=== PATIENT | male | born 1935 | race Caucasian/White ===

== ENCOUNTER 2019-07-28 15:40 | Emergency (ER) | payer MEDICARE, OTHER ==
[2019-07-28 16:04] VITALS: BP 130/60; PULSE 65
[2019-07-28] MEDS ORDERED: Baclofen 10 MG Tab PO ONE (16:08)
--- NOTE | 2019-07-28 16:13 | EDM.PDOC ---
ED HPI GENERAL MEDICAL PROBLEM - General Chief Complaint: General Stated Complaint: GROIN PAIN Time Seen by Provider: 07/28/19 15:45 Source of Information: Reports: Patient History Limitations: Reports: No Limitations - History of Present Illness INITIAL COMMENTS - FREE TEXT/NARRATIVE: states he developed sudden onset of pain inthe right high about last nigh last about and hour , no radiaiton , then this afternoon felt pain in son same area renée radiated tot he r knee Onset: Today Onset Date: 07/28/19 Duration: Intermittent Location: Reports: Lower Extremity, Right Quality: Reports: Ache, Dull Severity: Moderate Improves with: Reports: Cold Therapy Worsens with: Reports: Movement Associated Symptoms: Reports: No Other Symptoms right mid/inner thigh Pain Score (Numeric/FACES): 4 - Related Data Allergies Allergy/AdvReac Type Severity Reaction Status Date / Time amoxicillin Allergy Other Verified 07/28/19 15:57 metronidazole [From Flagyl] Allergy Nausea and Verified 07/28/19 15:57 Vomiting tramadol Allergy Other Verified 07/28/19 15:57 Home Meds: Home Meds Aspirin/Acetaminophen/Caffeine [Migraine Relief Caplet] 1 tab PO ASDIRECTED PRN 01/24/15 [History] Esomeprazole [NexIUM] 40 mg PO DAILY 01/24/15 [History] Fluticasone/Salmeterol [Advair 250-50] 1 puff INH BID 01/24/15 [History] Terazosin HCl [Terazosin] 10 mg PO DAILY 01/24/15 [History] Baclofen 10 mg PO BID #30 tablet 07/28/19 [Rx] Magnesium Oxide 400 mg PO DAILY #30 tab 07/28/19 [Rx] Past Medical History HEENT History: Reports: Cataract, Glaucoma, Hard of Hearing, Impaired Vision Respiratory History: Reports: Asthma, COPD, Pneumonia, Recurrent, Other (See Below) Other Respiratory History: EMPHYSEMA, CHRONIC LARYNGITIS Gastrointestinal History: Reports: Colon Polyp, Diverticulosis, GERD Genitourinary History: Reports: Prostate Disorder, Other (See Below) Other Genitourinary History: PROSTATE HYPERTROPHY - Past Surgical History HEENT Surgical History: Reports: Cataract Surgery ED ROS GENERAL - Review of Systems Review Of Systems: Comprehensive ROS is negative, except as noted in HPI. ED EXAM, GENERAL - Physical Exam Exam: See Below Exam Limited By: No Limitations General Appearance: Alert, WD/WN, No Apparent Distress Eye Exam: Bilateral Eye: EOMI Ears: Normal External Exam Nose: Normal Inspection Throat/Mouth: Normal Inspection Head: Atraumatic, Normocephalic Neck: Supple, Non-Tender Cardiovascular: Normal Peripheral Pulses, Regular Rate, Rhythm Peripheral Pulses: 2+: Dorsalis Pedis (L), Dorsalis Pedis (R) GI/Abdominal: Soft, Non-Tender Rectal (Males) Exam: Deferred Back Exam: Full Range of Motion Extremities: Leg Pain (in the right medial thigh : tenderness to palpation noted ) Neurological: Alert, Oriented, CN II-XII Intact Skin Exam: Warm Course - Vital Signs Last Recorded V/S: Last Vital Signs Temp 36.1 C 07/28/19 15:40 Pulse 65 07/28/19 15:40 Resp 18 07/28/19 15:40 BP 130/60 07/28/19 15:40 Pulse Ox 98 07/28/19 15:40 - Orders/Labs/Meds Orders: Active Orders 24 hr Category Date Time Status VL Duplex Lwr Ext Veins Ltd Rt [US] Stat Exams 07/28/19 16:08 Taken Labs: Laboratory Tests 07/28/19 07/28/19 07/28/19 Range/Units 16:41 16:41 16:52 WBC 7.5 (4.5-12.0) X10-3/uL RBC 4.60 (4.30-5.75) x10(6)uL Hgb 14.6 (13.5-17.8) g/dL Hct 43.7 (30.0-51.3) % MCV 94.9 (80-96) fL MCH 31.7 (27.7-33.6) pg MCHC 33.4 (32.2-35.4) g/dL RDW 13.6 (11.5-15.5) % Plt Count 215 (125-369) X10(3)uL MPV 7.4 (7.4-10.4) fL Neut % (Auto) 62.6 (46-82) % Lymph % (Auto) 26.5 (13-37) % [place] % (Auto) 6.8 (4-12) % Eos % (Auto) 3 (1.0-5.0) % Baso % (Auto) 1 (0-2) % Neut # (Auto) 4.6 (1.6-8.3) # Lymph # (Auto) 2.0 (0.6-5.0) # [place] # (Auto) 0.5 (0.0-1.3) # Eos # (Auto) 0.3 (0.0-0.8) # Baso # (Auto) 0.1 (0.0-0.2) # Sodium 142 (135-145) mmol/L Potassium 4.0 (3.5-5.3) mmol/L Chloride 105 (100-110) mmol/L Carbon Dioxide 24 (21-32) mmol/L BUN 26 H (7-18) mg/dL Creatinine 1.4 H (0.70-1.30) mg/dL Est Cr Clr Drug Dosing TNP Estimated GFR (MDRD) 49 L (>60) BUN/Creatinine Ratio 18.6 (9-20) Glucose 105 (80-116) mg/dL Calcium 8.8 (8.6-10.2) mg/dL Magnesium 1.9 (1.8-2.5) mg/dL Urine Color Yellow (YELLOW) Urine Appearance Clear (CLEAR) Urine pH 5.0 (5.0-6.5) Ur Specific [place] 1.020 (1.010-1.025) Urine Protein Negative (NEGATIVE) mg/dL Urine Glucose (UA) Normal (NORMAL) mg/dL Urine Ketones Negative (NEGATIVE) mg/dL Urine Occult Blood Negative (NEGATIVE) Urine Nitrite Negative (NEGATIVE) Urine Bilirubin Negative (NEGATIVE) Urine Urobilinogen Normal (NEGATIVE) mg/dL Ur Leukocyte Esterase Negative (NEGATIVE) Urine RBC Not seen (0-5) Urine WBC 0-5 (0-5) Ur Squamous Epith Cells Few H (NS,R,O) Urine Bacteria Few H (NS) Meds: Medications Discontinued Medications Generic Name Dose Route Start Last Admin Trade Name Freq PRN Reason Stop Dose Admin Baclofen 10 mg 07/28/19 16:08 07/28/19 16:40 Lioresal PO 07/28/19 16:09 10 mg ONETIME ONE Administration Magnesium Oxide 400 mg 07/28/19 17:09 07/28/19 17:12 Magnesium Oxide PO 07/28/19 17:10 400 mg ONETIME ONE Administration - Re-Assessments/Exams Free Text/Narrative Re-Assessment/Exam: 07/28/19 17:18 pt remained stable had Venous doppler of right keg: negative Departure - Departure Time of Disposition: 17:20 Disposition: Home, Self-Care 01 Clinical Impression: Right thigh pain, Muscle spasm of right lower extremity - Discharge Information *PRESCRIPTION DRUG MONITORING PROGRAM REVIEWED*: Not Applicable *COPY OF PRESCRIPTION DRUG MONITORING REPORT IN PATIENT PATRIZIA: Not Applicable Prescriptions: Baclofen 10 mg PO BID #30 tablet Magnesium Oxide 400 mg PO DAILY #30 tab Instructions: Muscle Cramps and Spasms, [id number], How to Use Cold Therapy, [id number], Heat Therapy, [id number] Referrals: Gunner Bach MD [Primary Care Provider] - Forms: ED Department Discharge Care Plan Goals: 1) COLD COMPRESS TO AFFECTED AREA 3 TIMES A DAY FOR 10MINS NEEDED 2) USE MUSCLE RELAXANT NEEDED , OR AT BEDTIME 3) IF SYMPTOMS PERSIST , SEE YOU PCP. Sepsis Event Note - Evaluation Sepsis Screening Result: No Definite Risk - Focused Exam Vital Signs: Vital Signs Temp Pulse Resp BP Pulse Ox 07/28/19 15:40 36.1 C 65 18 130/60 98 Date Exam was Performed: 07/28/19 Time Exam was Performed: 17:14 - My Orders Last 24 Hours: My Active Orders 07/28/19 16:08 VL Duplex Lwr Ext Veins Ltd Rt [US] Stat - Assessment/Plan Last 24 Hours: My Active Orders 07/28/19 16:08 VL Duplex Lwr Ext Veins Ltd Rt [US] Stat
[2019-07-28] MEDS ORDERED: Magnesium Oxide 400 MG Tab PO ONE (17:09)
--- NOTE | 2019-07-31 10:10 | US ---
INDICATION: Right thigh pain, question DVT - painful right groin. DUPLEX ULTRASOUND, RIGHT LOWER EXTREMITY VEINS: Utilizing 2-D real time, duplex Doppler spectral analysis and color flow imaging, examination of the right lower extremity veins, including the common femoral vein, proximal greater saphenous vein, proximal deep femoral vein, proximal femoral vein, mid femoral vein, distal femoral vein, popliteal vein, posterior tibial vein, anterior tibial vein, and peroneal vein, revealed no evidence of deep venous thrombosis or obstruction. Compression views showed no abnormal lack of compression to suggest thrombosis. No evidence of incompetence of the valves was identified. IMPRESSION: Duplex ultrasound, right lower extremity veins, shows no evidence of deep venous thrombosis or incompetence. MTDD
== END 2019-07-28 17:20 | disposition home or self-care (01) ==
LOC: FB.ED 15:40
DX: M62.838 Other muscle spasm (principal); Z88.1 Allergy status to other antibiotic agents; Z88.5 Allergy status to narcotic agent; J44.9 Chronic obstructive pulmonary disease, unspecified; K21.9 Gastro-esophageal reflux disease without esophagitis; Z79.899 Other long term (current) drug therapy
CPT/HCPCS: 36415; 80048; 81001; 83735; 85025; 93971; 99284; A9270

== ENCOUNTER 2020-10-14 12:59 | Emergency (ER) | payer MEDICARE, OTHER ==
[2020-10-14 13:44] VITALS: BP 140/87; PULSE 78
--- NOTE | 2020-10-14 14:22 | EDM.PDOC ---
ED HPI GENERAL MEDICAL PROBLEM - General Chief Complaint: Chest Pain Stated Complaint: ARM PAIN Time Seen by Provider: 10/14/20 13:05 Source of Information: Reports: Patient History Limitations: Reports: No Limitations - History of Present Illness INITIAL COMMENTS - FREE TEXT/NARRATIVE: Patient presented to the ED because of chest pain which started at about 12 nn and lasted for an hour. The pain is sharp,10, radiating to the left shoulder. There is no associated nausea,vomiting, diaphoresis or dyspnea. - Related Data Allergies Allergy/AdvReac Type Severity Reaction Status Date / Time amoxicillin Allergy Other Verified 10/14/20 13:25 metronidazole [From Flagyl] Allergy Nausea and Verified 10/14/20 13:25 Vomiting tramadol Allergy Other Verified 10/14/20 13:25 Home Meds: Home Meds Aspirin/Acetaminophen/Caffeine [Migraine Relief Caplet] 1 tab PO ASDIRECTED PRN 01/24/15 [History] Esomeprazole [NexIUM] 40 mg PO DAILY 01/24/15 [History] Fluticasone/Salmeterol [Advair 250-50] 1 puff INH BID 01/24/15 [History] Terazosin HCl [Terazosin] 10 mg PO DAILY 01/24/15 [History] Magnesium Oxide 400 mg PO DAILY #30 tab 07/28/19 [Rx] Past Medical History HEENT History: Reports: Cataract, Glaucoma, Hard of Hearing, Impaired Vision Respiratory History: Reports: Asthma, COPD, Pneumonia, Recurrent, Other (See Below) Other Respiratory History: EMPHYSEMA, CHRONIC LARYNGITIS Gastrointestinal History: Reports: Colon Polyp, Diverticulosis, GERD Genitourinary History: Reports: Prostate Disorder, Other (See Below) Other Genitourinary History: PROSTATE HYPERTROPHY - Past Surgical History HEENT Surgical History: Reports: Cataract Surgery Social & Family History - Tobacco Use Tobacco Use Status *Q: Never Tobacco User - Caffeine Use Caffeine Use: Reports: None - Recreational Drug Use Recreational Drug Use: No ED ROS GENERAL - Review of Systems Review Of Systems: See Below Constitutional: Reports: No Symptoms HEENT: Reports: No Symptoms Respiratory: Reports: No Symptoms Cardiovascular: Reports: Chest Pain Endocrine: Reports: No Symptoms GI/Abdominal: Reports: No Symptoms : Reports: No Symptoms Musculoskeletal: Reports: No Symptoms Skin: Reports: No Symptoms Neurological: Reports: No Symptoms Psychiatric: Reports: No Symptoms Hematologic/Lymphatic: Reports: No Symptoms Immunologic: Reports: No Symptoms ED EXAM, GENERAL - Physical Exam Exam: See Below Exam Limited By: No Limitations General Appearance: Alert, No Apparent Distress Eye Exam: Bilateral Eye: PERRL Ears: Normal External Exam, Normal Canal, Hearing Grossly Normal Nose: Normal Inspection, Normal Mucosa, No Blood Throat/Mouth: Normal Inspection, Normal Lips, Normal Teeth, Normal Gums, Normal Oropharynx, Normal Voice, No Airway Compromise Head: Atraumatic, Normocephalic Neck: Normal Inspection, Supple, Non-Tender, Full Range of Motion Respiratory/Chest: No Respiratory Distress, Lungs Clear, Normal Breath Sounds, No Accessory Muscle Use, Other (chest wall tenderness) Cardiovascular: Normal Peripheral Pulses, Regular Rate, Rhythm, No Edema, No Gallop, No JVD, No Murmur, No Rub GI/Abdominal: Normal Bowel Sounds, Soft, Non-Tender, No Organomegaly, No Distention, No Abnormal Bruit, No Mass Back Exam: Normal Inspection, Full Range of Motion Extremities: Normal Inspection, Normal Range of Motion, Non-Tender, No Pedal Edema, Normal Capillary Refill #1 Interpretation EKG Date: 10/14/20 Time: 12:57 Rhythm: NSR Rate (Beats/Min): 72 [place]: Normal P-Wave: Present QRS: Normal ST-T: Normal QT: Normal W[place]/PQ Interval: 72 Comparison: NA - No Prior EKG EKG Interpretation Comments: NSR Course - Vital Signs Text/Narrative:: Lab/EKG/CXR result was reviewed and discussed with patient Last Recorded V/S: Last Vital Signs Temp 36.2 C 10/14/20 12:59 Pulse 78 10/14/20 12:59 Resp 18 10/14/20 12:59 BP 140/87 10/14/20 12:59 Pulse Ox 97 10/14/20 12:59 - Orders/Labs/Meds Orders: Active Orders 24 hr Category Date Time Status EKG Documentation Completion [RC] ASDIRECTED Care 10/14/20 13:24 Active Chest 1V Frontal [CR] Stat Exams 10/14/20 13:23 Taken EKG 12 Lead [EK] Routine Ther 10/14/20 13:23 Ordered Labs: Laboratory Tests 10/14/20 10/14/20 10/14/20 Range/Units 13:15 13:15 13:15 WBC 6.7 (3.2-10.1) x10-3/uL RBC 4.34 (3.90-5.90) x10(6)uL Hgb 13.9 (12.9-17.7) g/dL Hct 40.7 (38.3-50.1) % MCV 93.7 (80.8-98.7) fL MCH 32.1 (27.0-33.3) pg MCHC 34.2 (28.7-35.3) g/dL RDW 14.0 (12.4-15.0) % Plt Count 186 (117-477) x10(3)uL MPV 7.5 (6.7-11.0) fL Neut % (Auto) 59.1 (40.3-71.8) % Lymph % (Auto) 27.6 (15.8-45.3) % [place] % (Auto) 9.3 (5.5-15.2) % Eos % (Auto) 3.3 (0.1-6.8) % Baso % (Auto) 0.7 (0.3-3.8) % Neut # (Auto) 4.0 (1.7-6.9) x10-3/uL Lymph # (Auto) 1.8 (0.5-4.5) x10-3/uL [place] # (Auto) 0.6 (0.0-1.2) x10-3/uL Eos # (Auto) 0.2 (0.0-0.6) x10-3/uL Baso # (Auto) 0.0 (0.0-0.3) x10-3/uL Sodium 145 (135-145) mmol/L Potassium 4.2 (3.5-5.3) mmol/L Chloride 108 (100-110) mmol/L Carbon Dioxide 24 (21-32) mmol/L BUN 16 D (7-18) mg/dL Creatinine 1.2 (0.70-1.30) mg/dL Est Cr Clr Drug Dosing TNP Estimated GFR (MDRD) 58 L (>60) BUN/Creatinine Ratio 13.3 (9-20) Glucose 96 (80-116) mg/dL Calcium 8.8 (8.6-10.2) mg/dL Total Bilirubin 0.5 (0.1-1.3) mg/dL AST 20 (5-25) IU/L ALT 25 (12-36) U/L Alkaline Phosphatase 73 (56-112) IU/L Troponin I < 4.0 L (4.0-60.3) pg/mL NT-Pro-B Natriuret Pep 190 (<=450) pg/mL Total Protein 7.5 (6.0-8.0) g/dL Albumin 3.9 (3.2-4.6) g/dL Globulin 3.6 g/dL Albumin/Globulin Ratio 1.1 Departure - Departure Time of Disposition: 14:30 Disposition: Home, Self-Care 01 Clinical Impression: Chest wall pain Instructions: Nonspecific Chest Pain, Adult, [id number], Nonspecific Chest Pain, Adult Referrals: Gunner Bach MD [Primary Care Provider] - Forms: ED Department Discharge Additional Instructions: Please read discharge instructions on atypical chest pain Take naproxen 500 mg twice daily for 1 week Follow up as needed Sepsis Event Note (ED) - Evaluation Sepsis Screening Result: No Definite Risk - Focused Exam Vital Signs: Vital Signs Temp Pulse Resp BP Pulse Ox 10/14/20 12:59 36.2 C 78 18 140/87 97 - My Orders Last 24 Hours: My Active Orders 10/14/20 13:23 Chest 1V Frontal [CR] Stat EKG 12 Lead [EK] Routine 10/14/20 13:24 EKG Documentation Completion [RC] ASDIRECTED - Assessment/Plan Last 24 Hours: My Active Orders 10/14/20 13:23 Chest 1V Frontal [CR] Stat EKG 12 Lead [EK] Routine 10/14/20 13:24 EKG Documentation Completion [RC] ASDIRECTED
--- NOTE | 2020-10-14 15:08 | CR ---
CHEST ONE VIEW INDICATION: Chest pain. History of COPD. AP portable upright views of the chest x2 were obtained 10/14/20 and compared with 06/13/10 and 07/04/09. A definite active infiltrate or effusion was not identified. The heart did not appear enlarged. The aorta is tortuous with minimal calcification in the arch. Overlying EKG leads are noted. IMPRESSION: No acute process. Fairly stable appearance of the chest allowing for relatively poor inspiration. MTDD
[2020-10-14] MEDS ORDERED: Sodium Chloride 0.9% 10 ML Syringe FLUSH PRN (17:37)
== END 2020-10-14 14:33 | disposition home or self-care (01) ==
LOC: FB.ED 12:59
DX: R07.89 Other chest pain (principal); J43.9 Emphysema, unspecified; K21.9 Gastro-esophageal reflux disease without esophagitis; Z88.0 Allergy status to penicillin; Z88.1 Allergy status to other antibiotic agents; Z88.5 Allergy status to narcotic agent; Z79.82 Long term (current) use of aspirin; Z79.899 Other long term (current) drug therapy
CPT/HCPCS: 36415; 71045; 80053; 83880; 84484; 85025; 93005; 99285-25

== ENCOUNTER 2024-02-10 10:58 | Emergency (ER) | payer MEDICARE, OTHER ==
[2024-02-10 11:29] LABS: BASOPHILS PERCENT AUTO 0.7 % (0.3-3.8); EOSINOPHILS ABSOLUTE AUTO 0.1 x10-3/uL (0.0-0.6); EOSINOPHILS PERCENT AUTO 2.1 % (0.1-6.8); HEMATOCRIT 42.8 % (38.3-50.1); HEMOGLOBIN 14.5 g/dL (12.9-17.7); LYMPHOCYTES PERCENT AUTO 15.6 % (15.8-45.3); MEAN CORPUSCULAR HGB CONC 33.8 g/dL (28.7-35.3); MEAN CORPUSCULAR VOLUME 94.7 fL (80.8-98.7); MEAN PLATELET VOLUME 7.6 fL (6.7-11.0); MONOCYTES ABSOLUTE AUTO 0.4 x10-3/uL (0.0-1.2); MONOCYTES PERCENT AUTO 5.8 % (5.5-15.2); NEUTROPHILS PERCENT AUTO 75.8 % (40.3-71.8); PLATELET COUNT,PLT 163 x10(3)uL (117-477); RED BLOOD CELL COUNT 4.52 x10(6)uL (3.90-5.90); RED CELL DISTRIBUTION WIDTH 13.9 % (12.4-15.0); WHITE BLOOD CELL COUNT,WBC 6.5 x10-3/uL (3.2-10.1)
[2024-02-10 11:36] LABS: BLOOD UREA NITROGEN,BUN 20 mg/dL (7-18); CALCIUM 9.4 mg/dL (8.6-10.2); CARBON DIOXIDE,CO2 26 mmol/L (21-32); CHLORIDE,CL 109 mmol/L (100-110); ESTIMATED GFR 73 mL/min (>60); GLUCOSE RANDOM 100 mg/dL (80-116); SODIUM,NA 144 mmol/L (135-145)
[2024-02-10 11:43] LABS: A/G RATIO 1.3; ALANINE AMINOTRANSFERASE,ALT 21 U/L (12-36); ALBUMIN 4.3 g/dL (3.2-4.6); ALKALINE PHOSPHATASE 116 IU/L (56-112); ASPARTATE AMNIOTRANSFERASE,AST 15 IU/L (5-25); BILIRUBIN TOTAL 0.6 mg/dL (0.1-1.3); PROTEIN TOTAL,TP 7.5 g/dL (6.0-8.0)
[2024-02-10] MEDS: Acetaminophen 500 MG Tab PO ONE (12:04)
[2024-02-10] MEDS: Ketorolac 30 MG/ML SDV IVPUSH ONE (12:05)
[2024-02-10] MEDS: Sodium Chloride 0.9% 10 ML Syringe FLUSH PRN (12:08)
[2024-02-10] MEDS: Iopamidol 755 Mg/ML 100 ML Bottle IV SCH (12:48)
[2024-02-10 13:49] VITALS: BP 132/89; PULSE 88
[2024-02-10] MEDS: traMADol 50 MG Tab PO ONE (13:54)
== END 2024-02-10 13:40 | disposition home or self-care (01) ==
LOC: FB.ED 10:58
DX: M54.9 Dorsalgia, unspecified (principal); J44.89 Other specified chronic obstructive pulmonary disease; K21.9 Gastro-esophageal reflux disease without esophagitis; Z88.0 Allergy status to penicillin; Z88.5 Allergy status to narcotic agent; Z88.1 Allergy status to other antibiotic agents; Z79.82 Long term (current) use of aspirin; Z79.899 Other long term (current) drug therapy
CPT/HCPCS: 36415; 71260; 74160; 80053; 84484; 85025; 93005; 93010; 96374; 99284; 99284-25; A9270-GY; J1885; Q9967

== ENCOUNTER 2024-04-14 09:05 | Emergency (ER) | payer MEDICARE, OTHER ==
[2024-04-14 09:44] LABS: BASOPHILS PERCENT AUTO 0.7 % (0.3-3.8); EOSINOPHILS ABSOLUTE AUTO 0.1 x10-3/uL (0.0-0.6); EOSINOPHILS PERCENT AUTO 2.4 % (0.1-6.8); HEMATOCRIT 37.1 % (38.3-50.1); HEMOGLOBIN 12.9 g/dL (12.9-17.7); LYMPHOCYTES ABSOLUTE AUTO 0.8 x10-3/uL (0.5-4.5); LYMPHOCYTES PERCENT AUTO 20.7 % (15.8-45.3); MEAN CORPUSCULAR HEMOGLOBIN 32.4 pg (27.0-33.3); MEAN CORPUSCULAR HGB CONC 34.8 g/dL (28.7-35.3); MEAN CORPUSCULAR VOLUME 93.2 fL (80.8-98.7); MEAN PLATELET VOLUME 7.5 fL (6.7-11.0); MONOCYTES ABSOLUTE AUTO 0.5 x10-3/uL (0.0-1.2); MONOCYTES PERCENT AUTO 13.2 % (5.5-15.2); NEUTROPHILS ABSOLUTE AUTO 2.4 x10-3/uL (1.7-6.9); PLATELET COUNT,PLT 145 x10(3)uL (117-477); RED BLOOD CELL COUNT 3.98 x10(6)uL (3.90-5.90); RED CELL DISTRIBUTION WIDTH 14.3 % (12.4-15.0); WHITE BLOOD CELL COUNT,WBC 3.7 x10-3/uL (3.2-10.1)
[2024-04-14 09:45] LABS: BLOOD UREA NITROGEN,BUN 16 mg/dL (7-18); CALCIUM 8.7 mg/dL (8.6-10.2); CARBON DIOXIDE,CO2 26 mmol/L (21-32); CHLORIDE,CL 105 mmol/L (100-110); ESTIMATED GFR 73 mL/min (>60); GLUCOSE RANDOM 108 mg/dL (80-116); SODIUM,NA 138 mmol/L (135-145)
[2024-04-14] MEDS: Ketorolac 30 MG/ML SDV IVPUSH ONE (09:45)
[2024-04-14] MEDS: Cyclobenzaprine 10 MG Tab PO ONE (09:45)
[2024-04-14] MEDS: Sodium Chloride 0.9% 1,000 ML IV SCH (09:46)
[2024-04-14 09:51] LABS: ALANINE AMINOTRANSFERASE,ALT 19 U/L (12-36); ALBUMIN 3.7 g/dL (3.2-4.6); ALKALINE PHOSPHATASE 159 IU/L (56-112); ASPARTATE AMNIOTRANSFERASE,AST 20 IU/L (5-25); BILIRUBIN TOTAL 0.4 mg/dL (0.1-1.3); PROTEIN TOTAL,TP 7.5 g/dL (6.0-8.0)
[2024-04-14 10:38] LABS: BILIRUBIN,URINE NEGATIVE (NEGATIVE); GLUCOSE,URINE NORMAL (NORMAL); KETONES,URINE NEGATIVE (NEGATIVE); LEUKOCYTE ESTERASE,URINE NEGATIVE (NEGATIVE); NITRITE,URINE NEGATIVE (NEGATIVE); OCCULT BLOOD,URINE MODERATE (NEGATIVE); PROTEIN,URINE NEGATIVE (NEGATIVE); UROBILINOGEN,URINE NORMAL (NEGATIVE)
[2024-04-14 10:42] LABS: APPEARANCE,URINE CLEAR (CLEAR); COLOR,URINE YELLOW (YELLOW)
[2024-04-14 10:47] LABS: BACTERIA,URINE OCCASIONAL (NS); RBC,URINE 0-5 (0-5); SQUAMOUS EPITHELIAL CELLS,UR OCCASIONAL (NS,R,O)
[2024-04-14 11:46] VITALS: BP 135/72; PULSE 67
== END 2024-04-14 11:20 | disposition home or self-care (01) ==
LOC: FB.ED 09:05
DX: M54.50 Low back pain, unspecified (principal); J44.89 Other specified chronic obstructive pulmonary disease; K21.9 Gastro-esophageal reflux disease without esophagitis; Z88.0 Allergy status to penicillin; Z88.5 Allergy status to narcotic agent; Z88.8 Allergy status to other drugs, medicaments and biological substances; Z79.82 Long term (current) use of aspirin; Z79.899 Other long term (current) drug therapy
CPT/HCPCS: 72131; 74176; 80053; 81001; 85025; 96361; 96374; 99284; A9270; J1885; J7030

== ENCOUNTER 2024-05-23 22:23 | Emergency (ER) | payer MEDICARE, OTHER ==
[2024-05-23] MEDS: Sodium Chloride 0.9% 10 ML Syringe FLUSH PRN (22:34)
[2024-05-23] MEDS: Nitroglycerin 0.4 MG Tab.SL SL PRN (22:55)
[2024-05-23 22:59] LABS: BASOPHILS PERCENT AUTO 0.4 % (0.3-3.8); EOSINOPHILS ABSOLUTE AUTO 0.4 x10-3/uL (0.0-0.6); EOSINOPHILS PERCENT AUTO 5.5 % (0.1-6.8); HEMATOCRIT 36.4 % (38.3-50.1); HEMOGLOBIN 12.6 g/dL (12.9-17.7); LYMPHOCYTES ABSOLUTE AUTO 1.6 x10-3/uL (0.5-4.5); LYMPHOCYTES PERCENT AUTO 23.5 % (15.8-45.3); MEAN CORPUSCULAR HEMOGLOBIN 33.7 pg (27.0-33.3); MEAN CORPUSCULAR HGB CONC 34.6 g/dL (28.7-35.3); MEAN CORPUSCULAR VOLUME 97.2 fL (80.8-98.7); MEAN PLATELET VOLUME 8.2 fL (6.7-11.0); MONOCYTES ABSOLUTE AUTO 0.5 x10-3/uL (0.0-1.2); MONOCYTES PERCENT AUTO 8.1 % (5.5-15.2); NEUTROPHILS ABSOLUTE AUTO 4.2 x10-3/uL (1.7-6.9); NEUTROPHILS PERCENT AUTO 62.6 % (40.3-71.8); PLATELET COUNT,PLT 143 x10(3)uL (117-477); RED BLOOD CELL COUNT 3.74 x10(6)uL (3.90-5.90); RED CELL DISTRIBUTION WIDTH 13.7 % (12.4-15.0); WHITE BLOOD CELL COUNT,WBC 6.7 x10-3/uL (3.2-10.1)
[2024-05-23] MEDS: Aspirin 81 MG Tab.Chew PO ONE (22:59)
[2024-05-23 23:00] LABS: BLOOD UREA NITROGEN,BUN 19 mg/dL (7-18); BUN/CREATININE RATIO 17.3 (9-20); CALCIUM 8.8 mg/dL (8.6-10.2); CARBON DIOXIDE,CO2 27 mmol/L (21-32); CHLORIDE,CL 105 mmol/L (100-110); CREATININE 1.1 mg/dL (0.70-1.30); EST CRCL DRUG DOSING (CG) 46.64 mL/min; ESTIMATED GFR 65 mL/min (>60); GLUCOSE RANDOM 105 mg/dL (80-116); POTASSIUM,K 3.8 mmol/L (3.5-5.3); SODIUM,NA 141 mmol/L (135-145)
[2024-05-23 23:05] LABS: A/G RATIO 1.1; ALANINE AMINOTRANSFERASE,ALT 17 U/L (12-36); ALBUMIN 3.8 g/dL (3.2-4.6); ALKALINE PHOSPHATASE 214 IU/L (56-112); ASPARTATE AMNIOTRANSFERASE,AST 24 IU/L (5-25); BILIRUBIN TOTAL 0.5 mg/dL (0.1-1.3); PROTEIN TOTAL,TP 7.3 g/dL (6.0-8.0)
[2024-05-23 23:21] LABS: TROPONIN I 72.3 pg/mL (4.0-60.3)
[2024-05-24] MEDS: Iopamidol 755 Mg/ML 100 ML Bottle IV SCH (00:15)
[2024-05-24] MEDS: Morphine 2 MG/ML SYRINGE IVPUSH ONE (00:25)
[2024-05-24 00:39] LABS: INR 1.05 (1.00-1.24); PROTHROMBIN TIME 10.9 sec (9.0-11.1)
[2024-05-24 00:59] LABS: PTT,PARTIAL THROMBOPLSTIN TIME 26.8 SECONDS (24.4-33.2)
[2024-05-24] MEDS: Heparin Sodium 5,000 Units/ML Vial IVPUSH ONE (01:50)
[2024-05-24] MEDS: Heparin Sodium/0.45% NaCl 500 ML IV SCH (01:51)
[2024-05-24] MEDS: Morphine 2 MG/ML SYRINGE IVPUSH PRN (02:43)
[2024-05-24 05:33] VITALS: BP 121/67; PULSE 63
== END 2024-05-24 05:52 ==
LOC: FB.ED 22:23
DX: I24.9 Acute ischemic heart disease, unspecified (principal); I50.9 Heart failure, unspecified; N40.0 Benign prostatic hyperplasia without lower urinary tract symptoms; J44.89 Other specified chronic obstructive pulmonary disease; Z88.0 Allergy status to penicillin; Z88.5 Allergy status to narcotic agent; Z88.8 Allergy status to other drugs, medicaments and biological substances; Z79.899 Other long term (current) drug therapy; Z79.82 Long term (current) use of aspirin; Z86.16 Personal history of COVID-19; Z87.891 Personal history of nicotine dependence
CPT/HCPCS: 36415; 71045; 71275; 80053; 83880; 84484; 85025; 85379; 85610; 85730; 93005; 93010; 96365; 96366; 96375; 96376; 99285; 99285-25; A9270-GY; J1644; J2270; Q9967

== ENCOUNTER 2024-07-06 08:55 | Emergency (ER) | payer MEDICARE, OTHER ==
[2024-07-06] MEDS ORDERED: Sodium Chloride 0.9% 10 ML Syringe FLUSH PRN (09:23)
[2024-07-06 09:50] LABS: BLOOD UREA NITROGEN,BUN 18 mg/dL (7-18); BUN/CREATININE RATIO 13.8 (9-20); CALCIUM 8.9 mg/dL (8.6-10.2); CARBON DIOXIDE,CO2 27 mmol/L (21-32); CHLORIDE,CL 101 mmol/L (100-110); CREATININE 1.3 mg/dL (0.70-1.30); EST CRCL DRUG DOSING (CG) 39.46 mL/min; ESTIMATED GFR 54 mL/min (>60); GLUCOSE RANDOM 114 mg/dL (80-116); POTASSIUM,K 4.1 mmol/L (3.5-5.3); SODIUM,NA 138 mmol/L (135-145)
[2024-07-06 09:55] LABS: BASOPHILS PERCENT AUTO 0.3 % (0.3-3.8); EOSINOPHILS ABSOLUTE AUTO 0.2 x10-3/uL (0.0-0.6); EOSINOPHILS PERCENT AUTO 3.2 % (0.1-6.8); HEMATOCRIT 34.6 % (38.3-50.1); HEMOGLOBIN 11.8 g/dL (12.9-17.7); LYMPHOCYTES PERCENT AUTO 15.7 % (15.8-45.3); MEAN CORPUSCULAR HGB CONC 34.1 g/dL (28.7-35.3); MEAN CORPUSCULAR VOLUME 94.1 fL (80.8-98.7); MEAN PLATELET VOLUME 7.9 fL (6.7-11.0); MONOCYTES ABSOLUTE AUTO 0.6 x10-3/uL (0.0-1.2); MONOCYTES PERCENT AUTO 9.8 % (5.5-15.2); NEUTROPHILS ABSOLUTE AUTO 4.7 x10-3/uL (1.7-6.9); NEUTROPHILS PERCENT AUTO 71.1 % (40.3-71.8); PLATELET COUNT,PLT 150 x10(3)uL (117-477); RED BLOOD CELL COUNT 3.68 x10(6)uL (3.90-5.90); RED CELL DISTRIBUTION WIDTH 15.4 % (12.4-15.0); WHITE BLOOD CELL COUNT,WBC 6.6 x10-3/uL (3.2-10.1)
[2024-07-06 09:56] LABS: A/G RATIO 0.9; ALANINE AMINOTRANSFERASE,ALT 13 U/L (12-36); ALBUMIN 3.5 g/dL (3.2-4.6); ALKALINE PHOSPHATASE 274 IU/L (56-112); ASPARTATE AMNIOTRANSFERASE,AST 26 IU/L (5-25); BILIRUBIN TOTAL 0.8 mg/dL (0.1-1.3); MAGNESIUM 1.9 mg/dL (1.8-2.5); PROTEIN TOTAL,TP 7.3 g/dL (6.0-8.0)
[2024-07-06 09:59] LABS: TROPONIN I 11.3 pg/mL (4.0-60.3)
[2024-07-06 10:00] LABS: C-REACTIVE PROTEIN 6.91 mg/dL (<0.50)
[2024-07-06 10:38] LABS: BILIRUBIN,URINE NEGATIVE (NEGATIVE); GLUCOSE,URINE NORMAL (NORMAL); KETONES,URINE NEGATIVE (NEGATIVE); LEUKOCYTE ESTERASE,URINE NEGATIVE (NEGATIVE); NITRITE,URINE NEGATIVE (NEGATIVE); OCCULT BLOOD,URINE NEGATIVE (NEGATIVE); PROTEIN,URINE NEGATIVE (NEGATIVE); UROBILINOGEN,URINE NORMAL (NEGATIVE)
[2024-07-06 10:44] LABS: APPEARANCE,URINE CLEAR (CLEAR); COLOR,URINE YELLOW (YELLOW)
[2024-07-06 12:51] VITALS: BP 125/55; PULSE 61
== END 2024-07-06 12:32 | disposition home or self-care (01) ==
LOC: FB.ED 08:55
DX: M94.0 Chondrocostal junction syndrome [Tietze] (principal); R07.9 Chest pain, unspecified; I25.10 Atherosclerotic heart disease of native coronary artery without angina pectoris; Z86.16 Personal history of COVID-19; Z90.49 Acquired absence of other specified parts of digestive tract; Z79.899 Other long term (current) drug therapy; Z88.0 Allergy status to penicillin
CPT/HCPCS: 36415; 71045; 80053; 81003; 83735; 84484; 85025; 86140; 93005; 99285

== ENCOUNTER 2024-12-08 10:58 | Emergency (ER) | payer MEDICARE, OTHER ==
[2024-12-08] MEDS ORDERED: Sodium Chloride 0.9% 10 ML Syringe FLUSH PRN (11:10)
[2024-12-08 11:30] LABS: BASOPHILS ABSOLUTE AUTO 0.0 x10-3/uL (0.0-0.3); BASOPHILS PERCENT AUTO 0.6 % (0.3-3.8); EOSINOPHILS ABSOLUTE AUTO 0.3 x10-3/uL (0.0-0.6); EOSINOPHILS PERCENT AUTO 6.6 % (0.1-6.8); LYMPHOCYTES ABSOLUTE AUTO 0.5 x10-3/uL (0.5-4.5); LYMPHOCYTES PERCENT AUTO 10.6 % (15.8-45.3); MEAN PLATELET VOLUME 7.4 fL (6.7-11.0); MONOCYTES ABSOLUTE AUTO 0.4 x10-3/uL (0.0-1.2); MONOCYTES PERCENT AUTO 8.2 % (5.5-15.2); NEUTROPHILS ABSOLUTE AUTO 3.8 x10-3/uL (1.7-6.9); NEUTROPHILS PERCENT AUTO 74.0 % (40.3-71.8); PLATELET COUNT,PLT 143 x10(3)uL (117-477); RED CELL DISTRIBUTION WIDTH 17.4 % (12.4-15.0); WHITE BLOOD CELL COUNT,WBC 5.1 x10-3/uL (3.2-10.1)
[2024-12-08 11:35] LABS: BLOOD UREA NITROGEN,BUN 20 mg/dL (7-18); CARBON DIOXIDE,CO2 25 mmol/L (21-32); CHLORIDE,CL 110 mmol/L (100-110); CREATININE 1.1 mg/dL (0.70-1.30); ESTIMATED GFR 65 mL/min (>60); GLUCOSE RANDOM 108 mg/dL (80-116); POTASSIUM,K 3.9 mmol/L (3.5-5.3); SODIUM,NA 143 mmol/L (135-145)
[2024-12-08 11:37] LABS: RED BLOOD CELL COUNT 2.89 x10(6)uL (3.90-5.90)
[2024-12-08 11:40] LABS: A/G RATIO 1.0; ALANINE AMINOTRANSFERASE,ALT 19 U/L (12-36); ASPARTATE AMNIOTRANSFERASE,AST 22 IU/L (5-25); BILIRUBIN TOTAL 0.5 mg/dL (0.1-1.3); PROTEIN TOTAL,TP 6.7 g/dL (6.0-8.0)
[2024-12-08 11:44] LABS: LACTIC ACID 1.6 mmol/L (0.4-2.0)
[2024-12-08 11:49] VITALS: BP 102/81; PULSE 58
== END 2024-12-08 14:00 | disposition home or self-care (01) ==
LOC: FB.ED 10:58
DX: I25.118 Atherosclerotic heart disease of native coronary artery with other forms of angina pectoris (principal); D64.9 Anemia, unspecified; Z88.0 Allergy status to penicillin; Z88.8 Allergy status to other drugs, medicaments and biological substances; Z79.82 Long term (current) use of aspirin; Z79.899 Other long term (current) drug therapy; Z86.16 Personal history of COVID-19; Z87.891 Personal history of nicotine dependence; Z90.49 Acquired absence of other specified parts of digestive tract
CPT/HCPCS: 71045; 80053; 83605; 83735; 84484; 85025; 86140; 93005; 93010; 99284; 99285